=== PATIENT | female | born 1985 | race Two or more races ===

== ENCOUNTER 2018-09-14 06:52 | Emergency (ER) | payer MEDICAID ==
[~2018-09-14] VITALS: Ht 157.5 cm; Wt 88.5 kg
[~2018-09-14 06:52] MED LIST: ALBU18; NAPR220C
[2018-09-14 07:30] LABS: Urine Bacteria NONE SEEN /hpf (None Seen); Urine Blood 2+ /uL (Negative); Urine Specific Gravity 1.021 (1.001-1.035); Urine WBC 6 /hpf (0 - 5)
[2018-09-14 07:37] LABS: Basophils # (auto) 0.1 uL; Basophils % (auto) 0.8 % (0.0-2.0); Eosinophils # (auto) 0.4 uL; Lymphocytes # (auto) 1.7 uL; Monocytes # (auto) 0.5 uL; Neutrophils # (auto) 5.6 uL; White Blood Cell 8.2 10^3/uL (4.4-10.8)
[2018-09-14 07:39] LABS: Eosinophils % (auto) 4.4 % (0.0-7.0); Hematocrit 34.2 % (36.0-46.0); Hemoglobin 11.5 g/dL (12.2-16.2); Lymphocytes % (auto) 20.4 % (10.0-50.0); Mean Corpuscular Hemoglobin 27.1 pg (28.0-32.0); Mean Corpuscular Hgb Conc. 33.5 g/dL (32.0-36.0); Mean Corpuscular Volume 80.9 fL (80.0-100.0); Neutrophils % (auto) 68.4 % (37.0-80.0); Nucleated Red Blood Cells % 0.1 %; Platelet Count (auto) 257 10^3/uL (140-450); Red Blood Cells 4.23 10^6/uL (4.0-5.20); Red Cell Distribution Width 14.6 % (11.8-14.3)
[2018-09-14 07:50] LABS: Albumin 2.9 g/dL (3.4-5.0); Potassium 3.4 mmol/L (3.5-5.1)
[2018-09-14 07:53] LABS: Bilirubin, Total 0.2 mg/dL (0.2-1.0); Total Protein 6.7 g/dL (6.4-8.2)
[2018-09-14] MEDS ORDERED: cefTRIAXone 1GM/50ML D5W 50 ML IV ONE (11:00)
[2018-09-14] MEDS ORDERED: POTASSIUM EFFERVESENT TAB 25 MEQ PO ONE (12:45)
[2018-09-14 12:55] VITALS: BP 124/72
== END 2018-09-14 13:04 | disposition home or self-care (01) ==
LOC: ER 06:55
DX: O23.41 Unspecified infection of urinary tract in pregnancy, first trimester (principal); O99.281 Endocrine, nutritional and metabolic diseases complicating pregnancy, first trimester; O99.331 Smoking (tobacco) complicating pregnancy, first trimester; J45.909 Unspecified asthma, uncomplicated; E87.6 Hypokalemia; Z3A.11 11 weeks gestation of pregnancy
CPT/HCPCS: 36415; 76801; 80053; 81001; 84702; 85025; 96365; 99284; J0696

== ENCOUNTER 2019-01-03 18:11 | Observation (INO) | payer MEDICAID ==
[2019-01-03 19:03] LABS: Urine Bacteria FEW /hpf (None Seen); Urine Blood Negative /uL (Negative); Urine Mucus FEW (None Seen); Urine WBC 3 /hpf (0 - 5)
[2019-01-03 19:22] LABS: Alcohol, Urine < 3.0 mg/dL (0-5); Amphetamine Screen, Urine NEGATIVE (NEGATIVE); Barbiturate Scree,Urine NEGATIVE (NEGATIVE); Benzodiazephine Screen, Urine NEGATIVE (NEGATIVE); Cannabinoid Screen, Urine NEGATIVE (NEGATIVE); Cocaine Screen, Urine NEGATIVE (NEGATIVE); Opiate Scree,Urine NEGATIVE (NEGATIVE); Phencyclidine Screen, Urine NEGATIVE (NEGATIVE)
== END 2019-01-03 21:16 | disposition home or self-care (01) | DRG 566 ==
LOC: LDRP 18:11
PROVIDERS: ADMIT Specialist; ATTEND Specialist
DX: O26.893 Other specified pregnancy related conditions, third trimester (principal); J45.909 Unspecified asthma, uncomplicated; M54.5 Low back pain; R10.9 Unspecified abdominal pain; O09.523 Supervision of elderly multigravida, third trimester; N89.8 Other specified noninflammatory disorders of vagina; O99.513 Diseases of the respiratory system complicating pregnancy, third trimester; Z87.891 Personal history of nicotine dependence; Z3A.28 28 weeks gestation of pregnancy
CPT/HCPCS: 59025; 76705; 76805; 80307; 81001; G0378

== ENCOUNTER 2022-02-15 15:10 | Emergency (ER) | payer MEDICAID ==
[~2022-02-15] VITALS: Ht 157.5 cm; Wt 108.0 kg
[2022-02-15 16:30] VITALS: BP 124/81
[2022-02-15] MEDS: ACETAMINOPHEN 325 MG TAB PO ONE ×2 (17:57→18:17)
== END 2022-02-15 18:18 | disposition left against medical advice (07) ==
LOC: ER 15:10
DX: K08.89 Other specified disorders of teeth and supporting structures (principal); Z53.21 Procedure and treatment not carried out due to patient leaving prior to being seen by health care provider

== ENCOUNTER 2024-02-13 13:47 | Emergency (ER) | payer MEDICAID ==
[~2024-02-13] VITALS: Ht 157.5 cm; Wt 111.2 kg
[2024-02-13] MEDS: IBUPROFEN 800 MG TAB PO ONE (16:02)
[2024-02-13 16:04] VITALS: PULSE 92; RESP 17; O2SAT 99
--- NOTE | 2024-02-13 16:25 | ED.PDOC ---
Musculoskeletal HPI Comments 38-year-old female with past medical history pertinent for asthma, presents to ED for a fall that occurred 2 days ago, associated with right ankle and low back pain. Patient states that she missed a few steps and then fell onto her right side. She denies any head injury, LOC, nausea, vomiting, saddle anesthesia. She reports some intermittent numbness in her right ankle. She currently rates her pain as 8/10 in severity. Patient denies taking medication for pain. No alleviating or aggravating factors. Chief Complaint: Fall Injury Time Seen by MD: 15:06 Primary Care Provider: FRIEDA Reviewed Notes: Nurses Notes, Medications, Allergies Allergies: Coded Allergies: Amoxicillin (Verified Allergy, Unknown, 02/15/22) Penicillins (Verified Allergy, Unknown, 02/15/22) Uncoded Allergies: PCN (Allergy, Unknown, 10/20/15) Home Meds Reported Medications Albuterol Sulfate (Ventolin Hfa) Aer 01/22/12 Naproxen Sodium (Aleve) 220 Mg Cap 08/02/09 Mode of Arrival: Ambulatory Past Medical History PAST MEDICAL HISTORY: Asthma Surgical History: Denies all surgeries STUD [employer] History: No Pertinent STUD [employer]ER History Family History Family History: Unobtainable Social History Smoker: Cigarettes Alcohol: Occasionally Drugs: Marijuana Lives In: Home Constitutional: denies: chills, diaphoresis, fatigue, fever, malaise, sweats, weakness, others EENTM: denies: blurred vision, double vision, ear bleeding, ear discharge, ear drainage, ear pain, ear ringing, eye pain, eye redness, hearing loss, mouth pain , mouth swelling, nasal discharge, nose bleeding, nose congestion, nose pain, photophobia, tearing, throat pain, throat swelling, voice changes, others Respiratory: denies: cough, hemoptysis, orthopnea, SOB at rest, shortness of breath, SOB with excertion, stridor, wheezing, others Cardiovascular: denies: chest pain, dizzy spells, diaphoresis, Dyspnea on exertion, edema, irregular heart beat, left arm pain, lightheadedness, palpitations, PND, syncope, others Gastrointestinal: denies: abdomen distended, abdominal pain, blood streaked bowels, constipated, diarrhea, dysphagia, difficulty swallowing, hematemesis, melena, nausea, poor appetite, poor fluid intake, rectal bleeding, rectal pain, vomiting, others Genitourinary: denies: abnormal vagina bleeding, burning, dyspareunia, dysuria, flank pain, frequency, hematuria, incontinence, pain, , vagina discharge, urgency, others Neurological: denies: dizziness, fainting, headache, left sided numbness, left sided weakness, numbness, paresthesia, pre-existing deficit, right sided numbness, right sided weakness, seizure, speech problems, tingling, tremors, weakness, others Musculoskeletal: reports: back pain, joint pain, joint swelling; denies: gout, muscle pain, muscle stiffness, neck pain, others Integumetry: denies: bruises, change in color, change in hair/nails, dryness, laceration, lesions, lumps, rash, wounds, others Allergic/Immunocompromised: denies: Difficulty Healing, Frequent Infections, Hives, Itching, others Hematologic/Lymphatic: denies: anemia, blood clots, easy bleeding, easy bruising, swollen glands, others Endocrine: denies: excessive hunger, excessive sweating, excessive thirst, excessive urination, flushing, intolerance to cold, intolerance to heat, unexplained weight gain, unexplained weight loss, others Psychiatric: denies: anxiety, bipolar disorder, depression, hopeless, panic disorder, schizophrenia, sleepless, suicidal, others All Other Systems: Reviewed and Negative Physical Exam General Appearance: No Apparent Distress, Normal HEENT: Normal ENT Inspection, Pharynx Normal, TMs Normal Neck: Full Range of Motion, Non-Tender, Normal, Normal Inspection Respiratory: Chest Non-Tender, Lungs Clear, No Accessory Muscle Use, No Respiratory Distress, Normal Breath Sounds Cardiovascular: No Edema, No JVD, No Murmur, No Gallop, Normal Peripheral Pulses, Regular Rate/Rhythm Breast Exam: Deferred Gastrointestinal: No Organomegaly, Non Tender, No Pulsatile Mass, Normal Bowel Sounds, Soft Genitalia: Deferred Pelvic: Deferred Rectal: Deferred Extremities: No calf tenderness, Normal capillary refill, Normal inspection, Normal range of motion, Non-tender, No pedal edema Musculoskeletal : Location: Right Extremity Location: Ankle (Mild swelling and tenderness to palpation to the right lateral ankle around the area of the medial malleolus with some ecchymosis. Patient is ambulatory.), Back (No spinal midline tenderness. No spinal step-offs. 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 Was a procedure done?: No Differential Diagnosis EXT Differential Diagnosis: Fracture, Sprain, Dislocation X-Ray, Labs, Meds, VS Vital Signs Date Time Temp Pulse Resp B/P (MAP) Pulse Ox O2 Delivery O2 Flow Rate FiO2 02/13/24 16:04 98.0 92 17 134/92 (106) 99 98.0 02/13/24 16:04 92 17 99 Room Air 02/13/24 16:04 92 17 99 Room Air* 0 21 02/13/24 14:54 98.4 111 18 136/98 (111) 98 Current Medications Medications (Trade) Dose Ordered Sig/Jordon Route Start Time Stop Time Status Last Admin Ibuprofen (Motrin Tablet) 800 mg ONCE ONCE PO 02/13/24 16:00 02/13/24 16:01 DC 02/13/24 16:02 X-Ray, Labs, Meds, VS Comment XR Right Foot FINDINGS/IMPRESSION: There is no evidence of acute fracture or dislocation. Small plantar calcaneal enthesophyte. The visualized joint space is well maintained. The alignment is anatomical. There is no radiopaque foreign body. XR Right Ankle FINDINGS/IMPRESSION: There is no evidence of acute fracture or dislocation. Soft tissue swelling over the lateral malleolus. The visualized joint space is well maintained. The alignment is anatomical. There is no radiopaque foreign body. MDM: Patient with history as above presented with right ankle pain. History obtained from patient. Patient was nontoxic, stable, afebrile, ambulatory, no acute distress. Exam as above. Independently reviewed imaging. Right foot and ankle x-ray did not show acute fracture or dislocation. Reviewed external records. All findings were discussed with the patient. Differential diagnosis considered. Overall presentation is consistent with ankle sprain. Low suspicion for acute fracture, dislocation. Patient was treated with ibuprofen with improvement in symptoms. Patient was placed in an ankle stirrup splint. Advised patient to rest, ice, compress, elevate the affected extremity. Patient was reevaluated and vital signs were reviewed. Consideration was given f or admission, but the patient was stable for outpatient management. Prescribed ibuprofen for pain management. Disposition: Discussed the need to follow up diagnostics, including incidental findings. Discharged the patient with instructions to obtain outpatient follow up in 1-2 days of today's symptoms and findings, with strict return precautions if patient develops new or worsening symptoms. This medical document was created using the [employer] system. Although this document has been carefully reviewed, there may still be some phonetic and typographical errors, which are due to imperfections of the software program, and do not reflect any compromise in the patient's medical care. Time of 1ST Reevaluation: 16:40 Reevaluation 1ST: Improved Patient Education/Counseling: Diagnosis, Treatment, Prognosis, Need For Follow Up Family Education/Counseling: No Family Present Departure 1 Departure Time of Disposition: 16:41 Impression: Primary Impression: Right ankle sprain Qualified Codes: S93.401A - Sprain of unspecified ligament of right ankle, initial encounter Disposition: HOME / SELF CARE / HOMELESS Condition: Fair e-Prescriptions Ibuprofen Micronized (Ibuprofen) 600 Mg Tab 600 MG PO [id number] PRN, #30 TAB Prov: MIRZA MAGANA 02/13/24 Critical Care Note Critical Care Time?: No Stability Stability form required: No Heart Score Heart Score: Heart Score Response (Comments) Value History N/A 0 EKG N/A 0 Age N/A 0 Risk Factors N/A 0 Troponin N/A 0 Total 0 MIRZA MAGANA Feb 13, 2024 16:25
--- NOTE | 2024-02-13 16:35 | DVH ---
CLINICAL INDICATION: R/o fracture TECHNIQUE: 3 radiographic views of the right foot were obtained. Comparison: None FINDINGS/IMPRESSION: There is no evidence of acute fracture or dislocation. Small plantar calcaneal enthesophyte. The visualized joint space is well maintained. The alignment is anatomical. There is no radiopaque foreign body.
--- NOTE | 2024-02-13 16:36 | DVH ---
CLINICAL INDICATION: R/o fracture TECHNIQUE: 3 radiographic views of the right ankle were obtained. Comparison: None FINDINGS/IMPRESSION: There is no evidence of acute fracture or dislocation. Soft tissue swelling over the lateral malleolus. The visualized joint space is well maintained. The alignment is anatomical. There is no radiopaque foreign body.
[2024-02-13] MEDS ORDERED: IBUP1TAB5 PO (16:41)
[2024-02-13 17:07] VITALS: BP 130/92; PULSE 92; RESP 17; TEMP 98; O2SAT 99
== END 2024-02-13 17:08 | disposition home or self-care (01) ==
LOC: ER 13:47
DX: S93.491A Sprain of other ligament of right ankle, initial encounter (principal); J45.909 Unspecified asthma, uncomplicated; F17.210 Nicotine dependence, cigarettes, uncomplicated; Z88.0 Allergy status to penicillin; W18.39XA Other fall on same level, initial encounter; Y93.89 Activity, other specified; Y92.89 Other specified places as the place of occurrence of the external cause; Y99.8 Other external cause status
CPT/HCPCS: 29125; 29515; 73610; 73630